=== PATIENT | male | born 1980 | race Caucasian/White ===

== ENCOUNTER 2022-04-21 12:11 | Outpatient (REF) | payer OTHER, SELFPAY ==
[2022-04-21 13:33] LABS: MANUAL DIFF FLAG NO
[2022-04-21 13:38] LABS: Basophils Absolute Auto 0.1 X10*3/uL (0.0-0.2); Basophils Percent Auto 0.6 % (0-2); Eosinophils Absolute Auto 0.4 X10*3/uL (0.0-0.4); Eosinophils Percent Auto 4.4 % (0-4); Hematocrit 48.4 % (42.0-52.0); Imm Gran Abs Auto 0.02 X10*3/uL (0.00-0.03); Imm Gran Pct Auto 0.2 % (0.0-0.4); Lymphocytes Absolute Auto 2.8 X10*3/uL (1.2-4.9); Lymphocytes Percent Auto 32.8 % (20-40); Mean Corpuscular HGB Conc 35.1 g/dl (31.0-36.0); Mean Corpuscular Hemoglobin 31.9 pg (27.0-33.0); Mean Corpuscular Volume 90.8 fL (80.0-98.0); Mean Platelet Volume 9.8 fL (9.4-12.4); Monocytes Absolute Auto 0.7 X10*3/uL (0.1-1.2); Monocytes Percent Auto 8.4 % (2-11); Neutrophils Absolute Auto 4.5 x10*3/uL (2.0-8.3); Neutrophils Percent Auto 53.6 % (45-73); Platelet Count 256 X10*3/uL (160-400); Red Blood Count 5.33 X10*6/uL (4.60-5.80); Red Cell Distribution Width 11.9 % (11.0-16.0); White Blood Count 8.4 X10*3/uL (4.8-10.8)
[2022-04-21 13:48] LABS: Alanine Aminotransferase 76 U/L (0-40); Albumin Level 4.3 g/dL (3.5-5.0); Alkaline Phosphatase 79 U/L (39-117); Anion Gap 15 (12-20); Aspartate Amino Transferase 49 U/L (5-37); Bilirubin Total 0.8 mg/dL (0.0-1.0); Blood Urea Nitrogen 16 mg/dL (9-16); Calcium 9.2 mg/dL (8.4-10.2); Carbon Dioxide 21 mmol/L (22-29); Chloride 107 mmol/L (96-108); Cholesterol 242 mg/dL; Estimated Glomerular Filt Rate > 60; Glucose Fasting 100 mg/dL (60-99); HDL Cholesterol 41 mg/dL; Potassium 4.2 mmol/L (3.3-5.1); Sodium 139 mmol/L (135-145); Total Protein 7.1 g/dL (6.5-8.0); Triglycerides 419 mg/dL
[2022-04-21 14:13] LABS: Free T4 (Free Thyroxine) 0.86 ng/dL (0.71-1.85); Thyroid Stimulating Hormone 1.67 uIU/mL (0.32-4.0)
== END 2022-04-21 12:12 | disposition home or self-care (01) ==
LOC: HO.10HDL 12:11
PROVIDERS: Visit Provider Internal Medicine
DX: Z00.00 Encounter for general adult medical examination without abnormal findings (principal)
CPT/HCPCS: 36415; 80053; 80061; 84439; 84443; 85025

== ENCOUNTER 2022-04-28 14:41 | Outpatient (REF) | payer OTHER, SELFPAY ==
--- NOTE | ~2022-04-28 | US_ITS ---
EXAMINATION: US THYROID CLINICAL INFORMATION: Thyroid goiter. COMPARISON: None TECHNIQUE: Linear transducer grayscale and color Doppler examination with attention to the region of the thyroid. FINDINGS: SIZE: Measurements of the thyroid lobes and nodules are given in sagittal, anteroposterior and transverse dimensions respectively. Right Thyroid Lobe: 4.5 x 1.5 x 1.3 cm, volume 4.8 mL. Left Thyroid Lobe: 4.5 x 1.2 x 1.5 cm, volume 4. mL. Isthmus: 0.4 cm in maximum AP dimension. THYROID PARENCHYMA AND NODULES: Thyroid gland has slightly heterogeneous echotexture. There are no nodules within the gland. The vascularity of the gland is grossly normal. NODES: No lymphadenopathy in the tissue surrounding the thyroid gland. US/US thyroid IMPRESSION: No evidence of thyroid nodules.
== END 2022-04-28 14:42 | disposition home or self-care (01) ==
LOC: HO.HMGCX 14:41
PROVIDERS: Visit Provider Internal Medicine
DX: E04.1 Nontoxic single thyroid nodule (principal)
CPT/HCPCS: 76536

== ENCOUNTER 2024-06-25 11:40 | Outpatient (REF) | payer OTHER, SELFPAY ==
[2024-06-25 13:13] LABS: MANUAL DIFF FLAG NO
[2024-06-25 13:16] LABS: Basophils Absolute Auto 0.1 X10*3/uL (0.0-0.2); Basophils Percent Auto 0.8 % (0-2); Eosinophils Absolute Auto 0.4 X10*3/uL (0.0-0.4); Eosinophils Percent Auto 3.9 % (0-4); Hemoglobin 18.7 g/dl (14.0-18.0); Imm Gran Abs Auto 0.03 X10*3/uL (0.00-0.03); Imm Gran Pct Auto 0.3 % (0.0-0.4); Lymphocytes Absolute Auto 2.2 X10*3/uL (1.2-4.9); Mean Corpuscular HGB Conc 34.6 g/dl (31.0-36.0); Mean Corpuscular Hemoglobin 32.6 pg (27.0-33.0); Mean Corpuscular Volume 94.1 fL (80.0-98.0); Mean Platelet Volume 9.4 fL (9.4-12.4); Monocytes Absolute Auto 0.6 X10*3/uL (0.1-1.2); Monocytes Percent Auto 6.1 % (2-11); Neutrophils Absolute Auto 6.2 x10*3/uL (2.0-8.3); Neutrophils Percent Auto 65.9 % (45-73); Platelet Count 251 X10*3/uL (160-400); Red Blood Count 5.74 X10*6/uL (4.60-5.80); Red Cell Distribution Width 11.9 % (11.0-16.0); White Blood Count 9.4 X10*3/uL (4.8-10.8)
[2024-06-25 14:15] LABS: Alanine Aminotransferase 76 U/L (0-40); Albumin Level 4.4 g/dL (3.5-5.0); Alkaline Phosphatase 85 U/L (39-117); Anion Gap 12 (12-20); Aspartate Amino Transferase 52 U/L (5-37); Bilirubin Total 0.9 mg/dL (0.0-1.0); Blood Urea Nitrogen 10 mg/dL (9-16); Calcium 10.1 mg/dL (8.4-10.2); Carbon Dioxide 26 mmol/L (22-29); Chloride 105 mmol/L (96-108); Cholesterol 283 mg/dL (<200); Estimated Glomerular Filt Rate > 60; Glucose Fasting 123 mg/dL (60-99); HDL Cholesterol 47 mg/dL (>40); LDL Cholesterol Calculated 178 mg/dL (<100); Potassium 4.2 mmol/L (3.3-5.1); Sodium 139 mmol/L (135-145); Total Protein 7.7 g/dL (6.5-8.0); Triglycerides 293 mg/dL (<150)
[2024-06-25 14:22] LABS: Free T4 (Free Thyroxine) 0.89 ng/dL (0.71-1.85); Thyroid Stimulating Hormone 1.71 uIU/mL (0.32-4.0)
== END 2024-06-25 11:41 | disposition home or self-care (01) ==
LOC: HO.10HDL 11:40
PROVIDERS: Visit Provider Internal Medicine
DX: I10 Essential (primary) hypertension (principal); R63.5 Abnormal weight gain; K21.9 Gastro-esophageal reflux disease without esophagitis
CPT/HCPCS: 36415; 80053; 80061; 84439; 84443; 85025

== ENCOUNTER 2025-07-29 13:03 | Outpatient (REF) | payer OTHER, SELFPAY ==
--- NOTE | ~2025-07-29 | XR_ITS ---
EXAMINATION: XR ABDOMEN KUB CLINICAL INDICATION: R19.8 - Other specified symptoms and signs involving the digestive syste... COMPARISON: None available. TECHNIQUE: AP view of the abdomen, supine position. FINDINGS: Gas throughout nondilated intestine. No air-fluid levels. Liver and spleen shadow is are prominent. Multilevel lower lumbar spondylosis with levoconvex curvature. XR/XR abdomen 1V IMPRESSION: No intestinal obstruction pattern. Questionable hepatosplenomegaly, mild. Electronically signed by: Hua Lopez MD 07/29/2025 02:41 PM EST RP
[2025-07-29 14:15] LABS: MANUAL DIFF FLAG NO
[2025-07-29 14:38] LABS: Hematocrit 53.9 % (42.0-52.0); Hemoglobin 18.4 g/dl (14.0-18.0); Imm Gran Abs Auto 0.07 X10*3/uL (0.00-0.03); Imm Gran Pct Auto 0.5 % (0.0-0.4); Lymphocytes Absolute Auto 2.2 X10*3/uL (1.2-4.9); Mean Corpuscular HGB Conc 34.1 g/dl (31.0-36.0); Mean Corpuscular Hemoglobin 32.5 pg (27.0-33.0); Mean Corpuscular Volume 95.1 fL (80.0-98.0); NRBC Abs Auto 0.000 X10*3/uL (0.0-0.012); NRBC Pct Auto 0.0 /100WBC (0.0-0.2); Platelet Count 261 X10*3/uL (160-400); Red Blood Count 5.67 X10*6/uL (4.60-5.80); White Blood Count 15.1 X10*3/uL (4.8-10.8)
[2025-07-29 15:18] LABS: Microalbum/Creatinine Ratio Ur 87.3 ug/mg cr (<30)
[2025-07-29 17:18] LABS: Alanine Aminotransferase 48 U/L (0-40); Albumin Level 4.8 g/dL (3.5-5.0); Alkaline Phosphatase 81 U/L (39-117); Anion Gap 13 (12-20); Aspartate Amino Transferase 59 U/L (5-37); Blood Urea Nitrogen 16 mg/dL (9-16); Calcium 9.4 mg/dL (8.4-10.2); Carbon Dioxide 27 mmol/L (22-29); Chloride 103 mmol/L (96-108); Cholesterol 172 mg/dL (<200); Estimated Glomerular Filt Rate > 60; HDL Cholesterol 48 mg/dL (>40); Potassium 3.8 mmol/L (3.3-5.1); Sodium 139 mmol/L (135-145); Total Protein 7.6 g/dL (6.5-8.0); Triglycerides 389 mg/dL (<150)
[2025-07-30 04:00] LABS: Syphilis Screen Nonreactive (Nonreactive)
[2025-07-30 04:28] LABS: HBS Num1 14.88 mIU/mL (0-7.99); HBc Num1 0.06 S/CO (0.00-0.79); HBsAGNum1 0.35 S/CO (0.00-0.99); HIV Num 1 0.09 S/CO (0.00-0.99); Hepatitis A Antibody IgM 0.23 Index (0-0.79); Hepatitis B Surface Antigen Negative (Negative); ~HepC Num1 0.07 S/CO (0.00-0.79); ~Hepatitis A Antibody IgM Nonreactive (Nonreactive); ~Hepatitis B Surface Antibody REACTIVE (Nonreactive); ~Hepatitis C Antibody Nonreactive (Nonreactive)
== END 2025-07-29 13:04 | disposition home or self-care (01) ==
LOC: HO.LAB 13:03
PROVIDERS: PCP Internal Medicine; Visit Provider Student in an Organized Health Care Education/Training Program
DX: Z00.00 Encounter for general adult medical examination without abnormal findings (principal); R19.8 Other specified symptoms and signs involving the digestive system and abdomen; I10 Essential (primary) hypertension; E78.2 Mixed hyperlipidemia; M48.02 Spinal stenosis, cervical region; K21.9 Gastro-esophageal reflux disease without esophagitis; R73.03 Prediabetes; F10.90 Alcohol use, unspecified, uncomplicated; G47.33 Obstructive sleep apnea (adult) (pediatric); R74.8 Abnormal levels of other serum enzymes; L30.9 Dermatitis, unspecified; Z13.31 Encounter for screening for depression; Z13.39 Encounter for screening examination for other mental health and behavioral disorders
CPT/HCPCS: 36415; 74018; 80053; 80061; 82043; 82306; 82570; 83036; 84443; 85025; 86704; 86706; 86709; 86780; 86803; 87340; 87389; 96127

== ENCOUNTER 2025-07-29 13:03 | Outpatient (AMB) | payer OTHER, SELFPAY ==
--- NOTE | 2025-07-29 13:11 | A.OFFPC_ITS ---
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: No Accompanied by: Self / Same As Patient Allergies buckwheat Allergy (Severe, Verified 07/29/25 13:15) high blood pressure and tingling sensation Medication List - Last Reconciled 07/29/25 by Malick Alves MD atorvastatin 20 mg PO DAILY betamethasone dipropionate 0.05% appl topical famotidine 20 mg PO DAILY PRN gabapentin 300 mg PO BEDTIME losartan 50 mg PO DAILY multivitamin 1 tab PO DAILY Tobacco use date assessed: 07/29/25 Dental Screening Dental Screen Date: 07/29/25 Did you have a dental visit in the last 12 months?: Yes Did you have a dental problem in the last 6 months where you did not have access to dental care?: No Was dental information given to patient?: Patient has dentist HPI HPI Comments History of Present Illness Details History of Present Illness The patient is a 45 year old male presenting for a new patient annual visit and management of multiple chronic conditions. He has a history of hypertension, hypercholesterolemia, and cervical spine stenosis with numbness in his fingers and hands. His medications include losartan 50 mg for blood pressure, atorvastatin 20 mg for cholesterol, and gabapentin 300 mg at night for the cervical spine stenosis. He also takes famotidine for occasional heartburn. Review of lab work from June of last year showed a total cholesterol of 283 and LDL of 178. He has a history of elevated liver enzymes, with an AST of 52 and ALT of 76 on those labs. His fasting blood sugar was 126, indicative of prediabetes. He has a 20-year history of GI problems, characterized by diarrhea multiple times a day that is never solid. His bowel movements were only consistent when he was on a carnivore diet. He denies any discomfort associated with these symptoms. The patient reports a sudden onset of severe eczema over the summer, which he has had on his back and eyes, and states he is about 90% covered currently. He saw a group supervisor yard for this condition on the morning of the visit. He has poor sleep quality, getting only 3-4 hours per night due to frequent awakenings, sometimes to urinate. He snores heavily and never feels rested upon waking. He previously tried a mouth guard to help with breathing at night, which provided some benefit. In early 2023, the patient followed a carnivore diet for 4-5 months and lost over 40 pounds, which led to phenomenal cholesterol levels. His weight at the end of last year was 268-269 pounds. However, he has regained 30 pounds since December. Medical History: - Hypertension, managed with losartan 50 mg. - Hypercholesterolemia, managed with lili rvastatin 20 mg. - Cervical spine stenosis with numbness in fingers and hands, managed with gabapentin 300 mg at night. - Elevated liver enzymes. - Prediabetes, with a fasting glucose of 126. - Gastroesophageal reflux disease (GERD) , treated with famotidine as needed for heartburn. - Chronic diarrhea for over 20 years. - Torn right biceps in 2021. - Eczema, with recent severe flare-up. - Allergy to buckwheat. Surgical History: - Back surgery in 2021 for a pinched ner ve. Medications: - Losartan 50 mg for hypertension. - Atorvastatin 20 mg for hypercholestero lemia. - Gabapentin 300 mg at night for cervica l spine stenosis. - Famotidine for occasional heartburn. Family History: - Mother: Had a stent placed and is diab etic. - The patient denies any other family hi story of heart disease or cancers. Diagnostic Results: - Labs from June 2023: Total cholest amairani 283, bad cholesterol 178, AST 52, ALT 76, fasting glucose 126. - Labs from December 2023: Showed phen omenal levels with decreased cholesterol after weight loss. Social History - Employment: Works at [employer]. - Tobacco Use: Denies current smoking; s moked as a teenager. - Alcohol Use: Reports drinking 3-4 drin ks per session, 3 times a week, which is bordering on high intake. - Illicit Drug Use: Denies use of mariju dwaine, heroin, or cocaine. - Diet: Previously followed a carnivore diet for 4-5 months, which resulted in a 40-pound weight loss. - Weight Management: His weight increase d to 268-269 lbs at the end of last year and after losing 40 lbs, he regained 30 lbs. - Exercise: He works out. - Housing: Reports having a safe place t o stay and denies worries about rent. Health Maintenance - Vaccinations: Up to date on flu shot a nd COVID-19 boosters. - Screenings: Baseline comprehensive lab work ordered, including lipid panel, sugars, thyroid, hepatitis panel, HIV, syphilis, and vitamin D. - Diagnostic tests: Abdominal X-ray orde red to investigate chronic diarrhea. An in-lab sleep study is being ordered to evaluate for sleep apnea. - Counseling: Discussed moderation of al cohol use, weight loss, salt reduction, and sleep hygiene. - Follow-up: A 4-week follow-up appointm ent will be scheduled via telephone to review test results and blood pressure monitoring. Patient was informed and verbally consented to the use of an ambient scribe for clinic note documentation during this visit. Vital signs reviewed. Comprehensive history, review of systems, and physical exam completed. Medications, allergies, and problem list reviewed and updated. Counseling provided on nutrition, regular exercise, sleep hygiene, and moderation of alcohol use. Discussed age-appropriate screenings (mammogram, colonoscopy, Pap, bone density) and immunizations (flu, COVID, shingles, Tdap). Screened for depression, fall risk, and home safety; no current concerns. Discussed stress management, dental and vision care, and importance of ongoing preventive follow-up. Routine labs ordered for metabolic and lipid screening. Patient educated on healthy lifestyle and agrees with the plan. [facility] Medical History (Updated 07/29/25 @ 13:51 by Malick Alves MD) Eczema Elevated liver enzymes Obstructive sleep apnea (adult) (pediatric) Abnormal bowel movement Alcohol use disorder Prediabetes GERD without esophagitis Stenosis, cervical spine Mixed hyperlipidemia Hypertension, essential, benign Social History Housing: House Patient Tobacco Use Status: Former Tobacco user Years Smoked: social smoker for 1 year e-Cigarette/Vaping Use: Never Used service: No Current occupational status: employed Current occupation: [employer] Questionnaire PHQ-9 Over the last 2 weeks, how often have you been bothered by any of the following problems? 1. Little interest or pleasure in doing things: not at all 2. Feeling down, depressed, or hopeless: not at all 3. Trouble falling or staying asleep, or sleeping too much: not at all 4. Feeling tired or having little energy: not at all 5. Poor appetite or overeating: not at all 6. Feeling bad about yourself - or that you are a failure or have let yourself or your family down: not at all 7. Trouble concentrating on things, such as reading the newspaper or watching television: not at all 8. Moving or speaking so slowly that other people could have noticed. Or the opposite - being so fidgety or restless that you have been moving around a lot more than usual: not at all 9. Thoughts that you would be better off or of hurting yourself in some way: not at all Total score: 0 Depression Screening Interpretation: Negative Depression Screening Done: Yes 81534 - PHQ-9 Billing: Yes Source: Developed by Drs. Justin Chavez, Suellen Hwang, Gonzalo Katz and colleagues, with an educational mariama from [employer]. Thrive Questionnaire Date Thrive assessed: 07/29/25 I am a: Patient What is your living situation today?: I have a steady place to live Within the past 12 months, did the food you bought not last and you didn't have the money to get more?: Never true Within the past 12 months, did you worry whether your food would run out before you got money to buy more?: Never true Do you have trouble paying for medicines?: No Do you have trouble getting transportation to medical appointments?: No Do you have trouble paying your heating and electricity bill?: No Do you have trouble taking care of your child, family member or friend?: No Do you have trouble with day-to-day activities such as bathing, preparing meals, shopping, managing finances, etc.?: No Are you currently unemployed and looking for a job?: No Are you interested in more education?: No THRIVE Score: 0 AUDIT C Alcohol Use Questionnaire (AUDIT-C) 1. How often do you have a drink containing alcohol?: 2-3 times a week 2. How many drinks containing alcohol do you have on a typical day when you are drinking?: 3 or 4 3. How often do you have six or more drinks on one occasion?: Less than monthly Total Score: 5 Score Reviewed/Action Taken: Yes DEMARIO-7 AMB Questionnaire DEMARIO-7 Date DEMARIO - 7 assessed: 07/29/25 Feeling nervous, anxious, or on edge: 0 = Not at all Not being able to stop or control worryin = Not at all Worrying too much about different things: 0 = Not at all Trouble relaxin = Not at all Being so restless that it is hard to sit still: 0 = Not at all Becoming easily annoyed or irritable: 0 = Not at all Feeling afraid as if something awful might happen: 0 = Not at all Total DEMARIO-7 score (0-4 normal; 5-9 mild; 10-14 moderate; 15-21 severe): 0 Source: Developed by Drs. Justin Chavez, Suellen Hwang, Gonzalo Katz and colleagues, with an educational mariama from [employer]. DEMARIO-7 Assessment Billing DEMARIO-7 Assessment Tool: DEMARIO-7 Assessment 14337 Review of Systems Narrative Review of Systems - General: Reports feeling funny and off today. - Neurological: Reports numbness in the fingers and hands. - Gastrointestinal: Reports occasional heartburn and chronic diarrhea for over 20 years, with bowel movements that are never solid. He denies abdominal discomfort. - Integumentary: Reports a sudden, severe, and widespread eczema flare-up that started in the summer. - Sleep: Reports poor sleep quality, sleeping only 3-4 hours per night with frequent awakenings and heavy snoring. He feels horrible and not rested upon waking. - Psychiatric: Denies feeling depressed, sad, down, or anxious. - Genitourinary: Reports urinating okay. All systems reviewed & are unremarkable except as reviewed in HPI and above Physical exam (Primary Care) Vital Signs: Last Vital Signs Temp 97.9 F 07/29/25 13:20 Pulse 92 07/29/25 13:20 Resp 20 07/29/25 13:20 BP 186/118 H 07/29/25 13:20 Pulse Ox 98 07/29/25 13:20 Oxygen Delivery Method Room Air 07/29/25 13:20 Care Plan Goal for BP management: Elevated Next steps: Takes meds at night will continue to monitor BMI result Body Mass Index 35.6 Tobacco/Smoking Status: Tobacco use Status Tobacco use date assessed 07/29/25 07/29/25 13:13 Patient Tobacco Use Status Former Tobacco user 07/29/25 13:23 e-Cigarette/Vaping Use Never Used 07/29/25 13:23 PHQ-9: PHQ-9 Score PHQ-9: Total score 0 07/29/25 13:32 Depression Screening Interpretation: Negative Thrive Assessment: Date of Thrive Assessment Date Thrive assessed 07/29/25 07/29/25 13:32 Narrative Physical Exam General: +Alert and oriented, Well nourished, No acute distress. Eye: Pupils are equal, round and reactive to light, Intact accommodation, Extraocular movements are intact, Normal conjunctiva, Vision unchanged. HENT: Normocephalic, Atraumatic, Tympanic membranes are clear, Normal hearing, Oral mucosa is moist, No pharyngeal erythema, Ear canals patent. Respiratory: Lungs CTA bilaterally, No wheeze, Respirations are non-labored. Cardiovascular: Regular rate, Regular rhythm, S1 auscultated, S2 auscultated, No murmur, Good pulses equal in all extremities, Normal peripheral perfusion, No edema. Gastrointestinal: Soft, Non-tender, Non-distended, Normal bowel sounds, No organomegaly, Reports diarrhea, No solid bowel movements. Musculoskeletal: Normal range of motion, Normal strength, No tenderness, No swelling, No deformity, Normal gait. Integumentary: Warm, Dry, [place], Intact, Reports eczema covering 90% of the body. Neurologic: Alert, Oriented, Normal sensory, Normal motor function, No focal defects, Cranial Nerves II-XII are grossly intact, Normal deep tendon reflexes. Psychiatric: Cooperative, Appropriate mood & affect, Normal judgment, Reports no depression or anxiety. Coding Level of Care Code New Pt Level 4 (93808) New Pt Prev Care 40-64y(44155) Diagnoses Hypertension, essential, benign I10 Mixed hyperlipidemia E78.2 Stenosis, cervical spine M48.02 GERD without esophagitis K21.9 Prediabetes R73.03 Alcohol use disorder F10.90 Obstructive sleep apnea (adult) (pediatric) G47.33 Abnormal bowel movement R19.8 Elevated liver enzymes R74.8 Eczema, unspecified type L30.9 Eczema type: unspecified Annual physical exam Z00.00 Additional Codes DEMARIO-7 Assessment Billing - DEMARIO-7 Assessment Tool: DEMARIO-7 Assessment 91436 ([id number]) PHQ-9 - 63288 - PHQ-9 Billing: Yes ([id number]) Comment [id number] Assessment & Plan Assessment & Plan (1) Hypertension, essential, benign: Comment: - The patient?s blood pressure is severely elevated at 186/118 mmHg. - He currently takes all his medications, including losartan, at night. - The plan is to have him switch to taking losartan in the morning. - He will obtain a blood pressure cuff, monitor his pressures daily for four weeks, and record the readings. - A follow-up is scheduled in four weeks to review the blood pressure log, and his medication may be increased if the pressures remain high. - He was counseled on diet modification, specifically reducing salt intake and weight loss, as barrios strategies for blood pressure control. Code(s): I10 - Essential (primary) hypertension Category: Medical (2) Mixed hyperlipidemia: Comment: - The patient has a history of high cholesterol and prediabetes, with a previous total cholesterol of 283 and a fasting blood sugar of 126. - Comprehensive blood work will be drawn today, including a lipid panel, thyroid function, sugars, and a hepatitis panel to reassess his status. - He was advised that if cholesterol is extremely high on the non-fasting sample, a repeat fasting lab would be ordered. Code(s): E78.2 - Mixed hyperlipidemia Category: Medical (3) Stenosis, cervical spine: Comment: - Stable on gabapentin 300mg QHS - Follows with spine surgery Code(s): M48.02 - Spinal stenosis, cervical region Category: Medical (4) GERD without esophagitis: Comment: - Stable on famotidine PRN Code(s): K21.9 - Gastro-esophageal reflux disease without esophagitis Category: Medical (5) Prediabetes: Comment: - Prior labs have an elevated fasting blood glucose with patietn reporting prior diagnosis of prediabetes - Plan to order A1c today Code(s): R73.03 - Prediabetes Category: Medical (6) Alcohol use disorder: Comment: - AUDIT C elevated to 5 - Advised to cut down given elevated liver enzymes and unsafe intake Code(s): F10.90 - Alcohol use, unspecified, uncomplicated Category: Medical (7) Obstructive sleep apnea (adult) (pediatric): Comment: - Due to reports of poor sleep, loud snoring, not feeling rested, and previous improvement with a jaw-advancing mouth guard, there is a high suspicion for FINESSE. - An in-lab sleep study will be ordered to evaluate for sleep apnea. - The patient was also counseled on sleep hygiene, including avoiding screens and caffeine before bed. - Weight loss was emphasized as a primary treatment for sleep apnea. Code(s): G47.33 - Obstructive sleep apnea (adult) (pediatric) Category: Medical (8) Abnormal bowel movement: Comment: - The patient has a 20-year history of chronic diarrhea. - To investigate for potential severe constipation presenting as overflow diarrhea, an abdominal X-ray (KUB) will be obtained today to assess for stool burden. - If a large amount of stool is present, treatment with MiraLax will be initiated to clear out his system. Code(s): R19.8 - Other specified symptoms and signs involving the digestive system and abdomen Category: Medical (9) Elevated liver enzymes: Comment: - The patient has a history of elevated liver enzymes, which could be related to fatty liver, alcohol use, or hepatitis. - He was counseled to reduce his alcohol intake to no more than one to two drinks at a time, up to three to four times a week, given his high consumption and elevated enzymes. - A hepatitis panel is included in today's blood work. Code(s): R74.8 - Abnormal levels of other serum enzymes Category: Medical (10) Eczema: Comment: - The patient reported seeing a group supervisor yard this morning for a severe flare. - No new treatment plan discussed in this visit. Code(s): L30.9 - Dermatitis, unspecified Category: Medical Qualifiers: Eczema type: unspecified Qualified Code(s): L30.9 - Dermatitis, unspecified (11) Annual physical exam: Code(s): Z00.00 - Encounter for general adult medical examination without abnormal findings Plan: - The patient is up to date on his flu shot and COVID boosters. - He will undergo comprehensive baseline blood work and an abdominal x-ray. - Follow-up is scheduled in 4 weeks via phone to discuss results and blood pressure management. Health Maintenance: - Vaccinations: Up to date on flu shot and COVID-19 boosters. - Screenings: Baseline comprehensive lab work ordered, including lipid panel, sugars, thyroid, hepatitis panel, HIV, syphilis, and vitamin D. - Diagnostic tests: Abdominal X-ray ordered to investigate chronic diarrhea. An in-lab sleep study is being ordered to evaluate for sleep apnea. - Counseling: Discussed moderation of alcohol use, weight loss, salt reduction, and sleep hygiene. - Follow-up: A 4-week follow-up appointment will be scheduled via telephone to review test results and blood pressure monitoring. Patient was informed and verbally consented to the use of an ambient scribe for clinic note documentation during this visit. Vital signs reviewed. Comprehensive history, review of systems, and physical exam completed. Medications, allergies, and problem list reviewed and updated. Counseling provided on nutrition, regular exercise, sleep hygiene, and moderation of alcohol use. Discussed age-appropriate screenings (mammogram, colonoscopy, Pap, bone density) and immunizations (flu, COVID, shingles, Tdap). Screened for depression, fall risk, and home safety; no current concerns. Discussed stress management, dental and vision care, and importance of ongoing preventive follow-up. Routine labs ordered for metabolic and lipid screening. Patient educated on healthy lifestyle and agrees with the plan. Plan I discussed with the patient that this was a new patient visit to establish care and perform a detailed assessment. We reviewed his history of hypertension and I expressed concern about his current blood pressure of 186/118 mmHg. I explained the plan to switch his losartan to the morning, monitor his blood pressure at home daily for four weeks, and follow up to assess the need for a medication increase. I emphasized that diet changes, particularly reducing salt intake, and weight loss are critical for managing his blood pressure. I explained that his high alcohol intake is a concern, especially with his history of elevated liver enzymes, and advised him to cut back significantly to a moderate level. I informed him we would order a full panel of baseline labs today, including checks for cholesterol, blood sugar, and hepatitis, and that he could proceed with them on a non-fasting basis unless the results were extremely abnormal. Regarding his chronic diarrhea, I explained the possibility of overflow con stipation and recommended an abdominal x-ray to check for stool burden, which could be performed today along with his blood work. For his poor sleep and snoring, I discussed the high likelihood of sleep apnea and ordered an in-lab sleep study, explaining that it is more accurate than an at-home test. I reinforced that losing weight would significantly help with many of his issues, including blood pressure and sleep apnea. The patient agreed to the plan, including getting the labs and x-ray today and scheduling a 4-week telehealth follow-up. Orders: Orders Hemoglobin A1c Today Z00.00 - Encounter for general adult medical examination without abnormal findings HIV Ab/Ag Today Z00.00 - Encounter for general adult medical examination without abnormal findings Vitamin D 25-OH Total Today Z00.00 - Encounter for general adult medical examination without abnormal findings Complete Blood Count Auto Diff Today Z00.00 - Encounter for general adult medical examination without abnormal findings Comprehensive Met. Panel Today Z00.00 - Encounter for general adult medical examination without abnormal findings Hepatitis A,B,C Profile Today Z00.00 - Encounter for general adult medical examination without abnormal findings Lipid Panel Today Z00.00 - Encounter for general adult medical examination without abnormal findings Microalbumin, Random (w Creat) Today Z00.00 - Encounter for general adult medical examination without abnormal findings Syphilis Screen Today Z00.00 - Encounter for general adult medical examination without abnormal findings TSH reflex Free T4 Today Z00.00 - Encounter for general adult medical examination without abnormal findings XR abdomen 1V Today R19.8 - Other specified symptoms and signs involving the digestive system and abdomen RT PSG in-lab sleep study Today G47.33 - Obstructive sleep apnea (adult) (pediatric) Patient Instructions: - Go to the lab and radiology department today to get your blood drawn and have an X-ray of your belly. - Start taking your losartan blood pressure pill in the morning instead of at night. - Get a blood pressure cuff and check your blood pressure every day for the next four weeks. Write the numbers down. - Reduce your alcohol intake. Do not have more than 1-2 drinks at a time, and no more than 3-4 times per week. - Work on your diet by reducing salt intake and focus on losing weight, as this will help your blood pressure, cholesterol, and sleep. - You will be contacted to schedule an in-lab sleep study to check for sleep apnea. - For better sleep, do not use your phone or other screens after 7 PM, and do not drink caffeine after 1 PM. - Schedule a follow-up appointment via phone in four weeks at [facility].
[2025-07-29 13:20] VITALS: BP 186/118; PULSE 92; RESP 20; TEMP 36.6; O2SAT 98; BMI 35.6
== END 2025-07-29 13:47 | disposition home or self-care (01) ==
PROVIDERS: PCP Student in an Organized Health Care Education/Training Program; Visit Provider Student in an Organized Health Care Education/Training Program
DX: Z00.00 Encounter for general adult medical examination without abnormal findings (principal); I10 Essential (primary) hypertension; E78.2 Mixed hyperlipidemia; R73.03 Prediabetes; M48.02 Spinal stenosis, cervical region; K21.9 Gastro-esophageal reflux disease without esophagitis; F10.90 Alcohol use, unspecified, uncomplicated; G47.33 Obstructive sleep apnea (adult) (pediatric); R19.8 Other specified symptoms and signs involving the digestive system and abdomen; R74.8 Abnormal levels of other serum enzymes; L30.9 Dermatitis, unspecified

== ENCOUNTER → 2025-07-29 14:22 | Outpatient (BNV) | payer OTHER, SELFPAY | PROVIDERS: PCP Internal Medicine; Visit Provider Radiology Diagnostic Radiology | DX: R19.8 Other specified symptoms and signs involving the digestive system and abdomen (principal) | CPT/HCPCS: 74018 ==